=== PATIENT | male | born 1995 | race Caucasian/White ===

== ENCOUNTER → 2018-02-26 | Outpatient (REF) | payer OTHER ==
[2018-02-26 10:57] LABS: % NORMAL FORMS 5 % (>=4); IMMOTILITY 53 %; NON PROGRESSIVE MOTILITY (c) 22 %; PROGRESSIVE MOTILITY (a) 25 % (>=32); SEMEN APPEARANCE OPAQUE (OPAQUE); SEMEN VISCOSITY LIQUID (LIQUID); SPERM CONCENTRATION 13.2 M/ml (>=15.0); TOTAL MOTILITY 47 % (>=40); WBC CONCENTRATION <=1 M/ml (<=1 M/ml)
[2018-02-26 10:58] LABS: SPERM# 39.6 M/Ejac (>=39); TOTAL FUNCTIONAL 1.2 M/Ejac.; TOTAL PROGRESSIVE SPERM 10.1 M/Ejac.
== END ==
LOC: M LAB REF 10:50
DX: Z31.41 Encounter for fertility testing (principal)
CPT/HCPCS: 89320

== ENCOUNTER 2018-08-10 10:00 | Emergency (ER) | payer OTHER ==
[~2018-08-10] VITALS: Ht 185.4 cm; Wt 102.3 kg
[2018-08-10] MEDS ORDERED: IBUPROFEN 800 MG TAB PO ONE (10:30)
[2018-08-10 11:36] LABS: INFLUENZA A AMPLIFICATION NEGATIVE (NEGATIVE); INFLUENZA B AMPLIFICATION NEGATIVE (NEGATIVE)
[2018-08-10 11:50] VITALS: BP 126/57
== END 2018-08-10 11:56 | disposition home or self-care (01) ==
LOC: M ED 10:00
DX: R19.7 Diarrhea, unspecified (principal)